=== PATIENT | female | born 1980 | race Caucasian/White ===

== ENCOUNTER 2018-04-16 12:15 | Emergency (ER) | payer MEDICAID ==
[~2018-04-16] VITALS: Ht 172.7 cm; Wt 146.7 kg
[~2018-04-16 12:15] MED LIST: COL100C PO; CYCL-1 PO; IBUP-1985 PO; NAPR-996 PO; ONDA4TAB59 PO; PREN-118 PO
[2018-04-16 12:36] VITALS: BP 161/106
[2018-04-16] MEDS ORDERED: CLIN300C37 PO (14:01)
== END 2018-04-16 14:07 | disposition home or self-care (01) ==
LOC: ER 12:16
DX: K04.7 Periapical abscess without sinus (principal); G89.29 Other chronic pain; F12.90 Cannabis use, unspecified, uncomplicated; F15.90 Other stimulant use, unspecified, uncomplicated; Z90.49 Acquired absence of other specified parts of digestive tract; Z90.89 Acquired absence of other organs; Z88.0 Allergy status to penicillin; Z79.899 Other long term (current) drug therapy; Z59.0 Homelessness
CPT/HCPCS: 99283

== ENCOUNTER 2018-04-20 09:09 | Emergency (ER) | payer MEDICAID ==
[~2018-04-20] VITALS: Ht 165.1 cm; Wt 145.0 kg
[~2018-04-20 09:09] MED LIST changes: +CLIN300C37 PO
[2018-04-20 09:15] VITALS: BP 185/101
[2018-04-20] MEDS ORDERED: HYDROcodone/acetaminophen 10/325mg tab PO ONE (09:50)
[2018-04-20] MEDS ORDERED: HYDR-565 PO (10:01)
== END 2018-04-20 10:09 | disposition home or self-care (01) ==
LOC: ER 09:10
DX: K04.7 Periapical abscess without sinus (principal); G89.29 Other chronic pain; F12.90 Cannabis use, unspecified, uncomplicated; F15.90 Other stimulant use, unspecified, uncomplicated; Z88.0 Allergy status to penicillin; Z79.899 Other long term (current) drug therapy; Z90.49 Acquired absence of other specified parts of digestive tract; Z90.89 Acquired absence of other organs; Z59.0 Homelessness
CPT/HCPCS: 99282; 99283

== ENCOUNTER 2018-08-31 06:27 | Emergency (ER) | payer MEDICAID ==
[~2018-08-31] VITALS: Ht 170.2 cm; Wt 139.3 kg
[~2018-08-31 06:27] MED LIST changes: -CLIN300C37 PO
[2018-08-31 06:37] VITALS: BP 158/93
[2018-08-31] MEDS ORDERED: ketorolac trometh inj. 60 MG/2 ML VIAL IM ONE (07:00)
[2018-08-31] MEDS ORDERED: HYDROcodone/acetaminophen 10/325mg tab PO ONE (07:00)
== END 2018-08-31 07:22 | disposition home or self-care (01) ==
LOC: ER 06:27
DX: G89.29 Other chronic pain (principal); M54.5 Low back pain; F12.90 Cannabis use, unspecified, uncomplicated; F15.90 Other stimulant use, unspecified, uncomplicated; F17.200 Nicotine dependence, unspecified, uncomplicated; Z90.49 Acquired absence of other specified parts of digestive tract; Z90.89 Acquired absence of other organs; Z88.0 Allergy status to penicillin; Z79.899 Other long term (current) drug therapy; Z56.0 Unemployment, unspecified
CPT/HCPCS: 96372; 99283; J1885

== ENCOUNTER 2019-09-07 10:38 | Emergency (ER) | payer MEDICAID ==
[~2019-09-07] VITALS: Ht 170.2 cm; Wt 137.1 kg
[2019-09-07 10:45] VITALS: BP 138/89
--- NOTE | 2019-09-07 10:57 | NUR ---
Pt ambulated to [facility] Room A without difficulty or assistance.
[2019-09-07] MEDS ORDERED: LORazepam 0.5 MG tablet PO STA (11:37)
[2019-09-07] MEDS ORDERED: ketorolac trometh. 30mg/ml inj. IM ONE (11:40)
== END 2019-09-07 12:22 | disposition home or self-care (01) ==
LOC: ER 10:39
DX: M54.5 Low back pain (principal); G89.29 Other chronic pain; E66.01 Morbid (severe) obesity due to excess calories; F12.90 Cannabis use, unspecified, uncomplicated; F15.90 Other stimulant use, unspecified, uncomplicated; Z56.0 Unemployment, unspecified; Z90.49 Acquired absence of other specified parts of digestive tract; Z88.0 Allergy status to penicillin; Z79.899 Other long term (current) drug therapy
CPT/HCPCS: 96372; 99283; J1885

== ENCOUNTER 2020-04-21 10:33 | Emergency (ER) | payer MEDICAID ==
[~2020-04-21] VITALS: Ht 170.2 cm; Wt 129.6 kg
[2020-04-21 10:52] VITALS: BP 135/85
[2020-04-21] MEDS ORDERED: DIPH25CA83 PO (11:27)
[2020-04-21] MEDS ORDERED: PERM60CR19 TOP (11:27)
== END 2020-04-21 11:53 | disposition home or self-care (01) ==
LOC: ER 10:34
DX: T14.8XXA Other injury of unspecified body region, initial encounter (principal); G89.29 Other chronic pain; F31.9 Bipolar disorder, unspecified; F20.9 Schizophrenia, unspecified; F12.90 Cannabis use, unspecified, uncomplicated; F15.90 Other stimulant use, unspecified, uncomplicated; Z90.49 Acquired absence of other specified parts of digestive tract; Z86.2 Personal history of diseases of the blood and blood-forming organs and certain disorders involving the immune mechanism; Z90.89 Acquired absence of other organs; Z98.890 Other specified postprocedural states; Z56.0 Unemployment, unspecified; Z88.0 Allergy status to penicillin; Z79.899 Other long term (current) drug therapy; W57.XXXA Bitten or stung by nonvenomous insect and other nonvenomous arthropods, initial encounter; Y93.89 Activity, other specified; Y92.89 Other specified places as the place of occurrence of the external cause; Y99.8 Other external cause status
CPT/HCPCS: 99283